=== PATIENT | female | born 1995 | race Caucasian/White ===

== ENCOUNTER 2024-09-07 15:47 | Emergency (ER) | payer OTHER, SELFPAY ==
--- OUTSIDE RECORDS SUMMARY | 2024-09-07 15:49 | XMS_ITS | Clinical Summary ---
[facility] Address [address] [place] [address] Care Team Providers Care Circuit Board Drafter Name Role Phone Nadia Sidhu APRN, CNP Primary Care Provider + Source Comments You are receiving this document as you are listed as the primary care provider,follow-up provider, or the patient has been referred to you for consultation.This is in compliance with the Medicare and[facility] Cent[facility] EHR Incentive Program,which states Providers who transition their patient to another setting of careor provider of care or refers their patient to another provider of care shouldprovide summary care record for each transition of care or referral. Thrinacia Allergies Active Allergy Reactions Criticality Noted Date Comments Cefprozil Hives High 08/09/2018 Iodine Hives High 08/09/2018 Medications MULTIPLE VITAMIN OR Take by mouth daily. Active Cholecalciferol (VITAMIN D-3 OR) Take by mouth daily. Active citalopram (CELEXA) 40 MG tabletIndication s:Anxiety and depression (HRC) Take 1 Tablet by mouth daily. 90 Tablet 3 11/21/2019 Active Active Problems Problem Noted Date Diagnosed Date Nexplanon in place 08/09/2018 Overview (08/09/2018): PLACED 04/2217 Immunizations Immunization Administration Dates Next Due 4vHPV (Gardasil) 08/13/2008,04/03/2008, 8 DTaP 08/03/2000, 7,02/10/1996,12/06,1995 HepA Ped/Adol (1-18 yrs) 06/15/2007,11/25/2006 HepB Ped/Adol (0-18 yrs) 02/10/1996,1995,0 1995 Hib, Unspecified Formulation 11/02/1996, 02/10/1996,1995,10/04 IPV (Polio) 08/03/2000, 7,1995,10/04 Influenza IIV4 (Quadrivalent ) 0.5mL (68424) 01/15/2019 Influenza, Unspecified Formulation 01/04/2018 MCV4 Menveo 2m.+ (two vial) 09/27/2011 MMR 08/03/2000,11/02/1996 Meningococcal MCV4, Unspecif ied Formulation 09/27/2011 Tdap 09/10/2016 Varicella 11/25/2006,08/03/2000 Family History Medical History Relation Name Comments Obesity Father Diabetes, Type II Mother Eczema Mother Relation Name Status Comments Father Alive Mother Alive Maternal Grandfather Alive Maternal Grandmother Alive Paternal Grandfather Alive Paternal Grandmother Alive Sister 1 Alive Sister 2 Alive Social History Tobacco Use Types Packs/Day Years Used Date Smoking Tobacco: Never Smokeless Tobacco: Never Alcohol Use Standard Drinks/Week Comments Yes 3 (1 standard drink = 0.6 oz pur e alcohol) Comments No Sex and Gender Information Value Date Recorded Sex Assigned at Not on file Legal Sex Female 9:17 AM CDT Gender Identity Not on file Sexual Orientation Not on file 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 on file Not on file Not on file Last Filed Vital Signs Vital Sign Reading Time Taken Comments Blood Pressure 109/75 11/21/2019 9:04 AM CDT Pulse 97 11/21/2019 9:04 AM CDT Temperature - - Respiratory Rate - - Oxygen Saturation - - Inhaled Oxygen Concentration - - Weight 69.9 kg (154 lb) 11/21/2019 9:04 AM CDT Height 170.2 cm (5' 7) 11/21/2019 9:04 AM CDT Body Mass Index 24.12 11/21/2019 9:04 AM CDT Plan of Treatment Health Maintenance Due Date Last Done Comments Hep C Screening (Preventive Services) 1995 HIV Screening (Preventive Services) 2011 Adult Preventive Visit 08/09/2020 08/09/2018 Cervical Cancer Screening 08/09/2021 08/09/2018, 05/2016 COVID-19 Vaccine ( season) 2023 04/22/2020, 04/01/2020 Influenza Vaccine (Season Ended) 2024 01/03/2020, 01/15/2019, 01/04/2018, Additional history exists DTaP/Tdap/Td Vaccine (8 - Tdap) 09/10/2026 09/10/2016, 11/25/2006, 08/03/2000, Additional history exists Zoster/Shingles Vaccine (1 of 2) 08/01/2045 HepB Vaccine Completed 02/10/1996, 09/10, 1995 Hib Vaccine Completed 11/02/1996, 04/1995, 1995, Additional history exists IPV (Polio) Vaccine Completed 08/03/2000, 11/02/1996, 1995, Additional history exists Varicella Vaccine Completed 11/25/2006, 08/03/2000 HepA Vaccine Completed 06/15/2007, 11/25/2006 HPV Vaccine Completed 08/13/2008, 03/12, 01/25/2008 MCV4 Vaccine Completed 09/27/2011, 09/09, 11/25/2006 Chlamydia Discontinued 08/09/2018 Meningococcal B Vaccine Aged Out No l onger eligible based on patient's age to complete this topic Pneumococcal Vaccine Aged Out No long er eligible based on patient's age to complete this topic Procedures Procedure Name Priority Date/Time Associated Diagnosis Comments CHLAMYDIA & GC (14 YEARS & OLDER) Routine 08/09/2018 2:45 PM CDT Screening for STD (sexually transmitted disease) CYTOLOGY (PAP) Routine 08/09/2018 2:45 PM CDT Screening for malignant neoplasm of cervix from Last 3 Months or Most Recently Relevant to Health Maintenance Results * PAP Test (08/09/2018 2:45 PM CDT) Case Report Pap Case: [id number] Authorizing Provider: Nadia Sidhu APRN, CNP Collected: 08/09/2018 02:45 PM Ordering Location: [facility] Received: 08/09/2018 02:58 PM First Screen: Aubrie Mera Specimen: Pap Test, Routine, Cervix/Endocervix 08/22/2018 2:00 PM [facility] Pap Specimen Adequacy Satisfactory for evaluation, endocervical/peña sformation zone component present. 08/22/2018 2:00 PM [facility] Pap Interpretation Negative for intraepithelial lesion or malignancy (NILM). 08/22/2018 2:00 PM [facility] at 1400 CDT Gross Description The specimen is received in SurePath fixative and properly labeled. 1 Pap-stained SurePath slide is prepared. 08/22/2018 2:00 PM [facility] Pap Disclaimer The Pap test is a screening test designed to aid in the detection of cervical cancer and its precursor lesions. It is not a diagnostic procedure and should not be used as the sole means of detecting cervical cancer. Both false-positive and false-negative reports may occur. 08/22/2018 2:00 PM [facility] Embedded Images 9 2:00 PM [facility] Other Specimen Type ENTIRE ENDOCERVIX / Unknown 08/09/2018 2:45 PM CDT 08/09/2018 2:58 PM CDT Comment:LMP: Patient's last menstrual period was 07/17/2018 (exact date). us Nadia Sidhu APRN, CNP LAB PATHOLOGY Final Re sult [address] [address], [facility] [phone] * Chlamydia & GC (14 Years and Older) (08/09/2018 2:45 PM CDT) Chlamydia Trachomatis STD Not Detected Not Detected 08/10/2018 2:34 PM CDT [facility] N. gonorrhoeae STD Not Detected Not Detected 08/10/2018 2:34 PM CDT [facility] Swab (Source Required) ENTIRE ENDOCERVIX / Unknown Non-blood Collection / Unknown 08/09/2018 2:45 PM CDT 08/09/2018 2:58 PM CDT Narrative [facility] - 08/10/2018 2:34 PM CDT Test performed by Molecular Detection us Nadia Sidhu RECEPTIONIST SECRETARY, CARE COORDINATION MANAGER LAB_1 Final Re sult [facility] [address] [address], [facility] [phone] from Last 3 Months or Most Recently Relevant to Health Maintenance Insurance [facility] [place] [id number] Care Teams Circuit Board Drafter Relationship Specialty Start Date End Date Nadia Sidhu APRN, CNP PCP - General Nurse Practitioner 08/07/18
--- OUTSIDE RECORDS SUMMARY | 2024-09-07 15:49 | XMS_ITS | Encounter Summary ---
Author Organization [facility] Address [address] [place] [address] Care Team Providers Care Concrete Batcher Name Role Phone Nadia Sidhu APRN, CNP Primary Care Provider + Encounter Details Date Type Department Care Team (Late st Contact Info) Description 09/10/2016 Scanned History External to [facility]red Record, [facility] Social History Tobacco Use Types Packs/Day Years Used Date Smoking Tobacco: Never Assessed Comments Unknown Sex and Gender Information Value Date Recorded Sex Assigned at Not on file Legal Sex Female 9:17 AM CDT Gender Identity Not on file Sexual Orientation Not on file documented as of this encounter Plan of Treatment Not on file documented as of this encounter Visit Diagnoses Not on filedocumented in this encounter Care Teams Concrete Batcher Relationship Specialty Start Date End Date Nadia Sidhu APRN, CNP PCP - General Nurse Practitioner 08/07/18 documented as of this encounter
--- OUTSIDE RECORDS SUMMARY | 2024-09-07 15:50 | XMS_ITS | Clinical Summary ---
Author Organization [employer] [facility] Address [facility] [place] [address] Care Team Providers Care Occupational Health Coordinator Name Role Phone TymagdalenosheelaTran Primary Care Provider Allergies Active Allergy Reactions Criticality Noted Date Comments Cefprozil Hives 11/21/2006 Iodine Hives Medications norethindrone acet-ethinyl est, 1.5-30 mg-mcg, (LOESTRIN .09/07; JUNEL .09/07) 1.5-30 mg-mcg tab tabletIndicatio ns:Irregular menses,Intermen strual bleeding Take 1 tablet by mouth once daily. 3 Package 06/23/2016 Active citalopram (CELEXA) 20 mg tabletIndicatio ns:Generalized anxiety disorder Take 1.5 tablets by mouth once daily. 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, UNSPECIFIED-L accommodative 7 Resolved Problems Problem Noted Date Diagnosed Date Resolved Date Esotropia, unspecified 11/25/200612/02 Encounters Date Type Department Care Team Description 07/20/2024 7:45 PM CDT Office Visit [facility] [address] [place] [address] Rich Díaz NP Laceration 07/20/2024 Travel from Last 3 Months Immunizations Immunization Administration Dates Next Due AMB Influenza, (Flumist) Mayra e Intranasal,LAIV4 (Flu Clinic Only) 01/26/2011 DTaP 08/03/2000, 7,02/10/1996,12/06,1995 HIB PRP-OMP (PedvaxHIB) 11/02/1996,02/09,1995,10/04 Hepatitis A (Peds) 06/15/2007,11/25/2006 Hepatitis B (Peds) 02/10/1996,1995, 996 Human Papilloma Virus Vaccine 08/13/2008, 008,01/25/2008 Inactivated Polio Vaccine 08/03/2000,,1995,10/04 Influenza, IIV3 (Age >=3 years) 01/16/2015,03/06,03/04/2010 Influenza, IIV4 01/17/2014 Influenza,LAIV4 Live Intrana ambra (Flumist) 01/10/2012 MENINGOCOCCAL VACCINE 2 VIAL 2MO-55YO (MENVEO) 09/27/2011 MMR 08/03/2000,11/02/1996 Meningococcal Vaccine (Menactra) 11/25/2006 Tdap 09/10/2016,11/25/2006 Varicella Vaccine 11/25/2006,08/03/2000 Family History Medical History Relation Name Comments Good Health Father Heart Disease Maternal Grandfather Hypertension Maternal Grandfather Diabetes Mother type 2 Blood Disease Paternal Grandfather leukem ia Hodgkin's lymphoma Sister Relation Name Status Comments Father Alive Maternal Grandfather Alive Maternal Grandmother Alive Mother Alive Paternal Grandfather Alive Paternal Grandmother Alive Sister Social History Tobacco Use Types Packs/Day Years Used Date Smoking Tobacco: Never Smokeless Tobacco: Never Tobacco Cessation:Counseling Given: Yes Comments:Non Smoking Household Alcohol Use Standard Drinks/Week Comments Yes 0 (1 standard drink = 0.6 oz pur e alcohol) social PHQ-2 Answer Date Recorded PHQ-2 Score 0 06/12/2018 Comments No Sex and Gender Information Value Date Recorded Sex Assigned at Not on file Legal Sex Female 7:11 AM DISTRICT COMMERCIAL SUPERINTENDENT Gender Identity Not on file Sexual Orientation Not on file Occupation Industry Job Start Date Job End Date student Not on file Not on file Not on file Obstetrics History Para Term AB IAB SAB Ectopic Multiple Livin g Live Births 0 0 0 0 0 0 0 0 0 0 Last Filed Vital Signs Vital Sign Reading Time Taken Comments Blood Pressure 135/81 07/20/2024 7:51 PM CDT Pulse 72 07/20/2024 7:51 PM CDT Temperature 37 C (98.6 F) 07/20/2024 7:51 PM CDT Respiratory Rate 18 07/20/2024 7:51 PM CDT Oxygen Saturation 100% 07/20/2024 7:51 PM CDT Inhaled Oxygen Concentration - - Weight 70.9 kg (156 lb 6.4 oz) 05/02/2017 5:13 P M DISTRICT COMMERCIAL SUPERINTENDENT Height 168.3 cm (5' 6.25) 05/02/2017 5:13 PM CS T Body Mass Index 25.05 05/02/2017 5:13 PM DISTRICT COMMERCIAL SUPERINTENDENT Plan of Treatment Health Maintenance Due Date Last Done Comments HIV for age 15-65 08/01/2010 Hepatitis C screening for age 18-79 08/01/2013 BMI (ht and wt on same day) for age 18+ 05/02/2018 05/02/2017, 09/10/2016, 06/14/2016 Depression screening for age 12+ 10/24/2018 10/24/2017, 05/02/2017, 09/10/2016, Additional history exists Pap test for age 21-65 09/11/2019 09/10/2016 COVID-19 vaccine series ( season) 2023 07/14/2021, 04/22/2020, 04/01/2020 Influenza Vaccine (Season Ended) 2024 01/16/2015, 01/17/2014, 03/06/2013, Additional history exists Tetanus booster 09/10/2026 09/10/2016, 11/25/2006 Hepatitis B series for 19+ Completed 02/09, 1995, 1995 Tdap Completed 09/10/2016, 11/25/2006 Pneumococcal series for age 6-49 Aged Out No longer eligible based on patient's age to complete this topic Procedures Procedure Name Priority Date/Time Associated Diagnosis Comments AR SIMPLE REPAIR SCALP/NECK/AX/GENIT /TRUNK 2.5CM/< Routine 07/20/2024 8:31 PM CDT Laceration of right hand without foreign body, initial encounter PRINCIPAL ASSOCIATE THIN PREP PAP SCREEN IMAGED Routine 09/10/2016 2:11 PM CDT Pap smear for cervical cancer screening from Last 3 Months or Most Recently Relevant to Health Maintenance Results * AR SIMPLE REPAIR SCALP/NECK/AX/GENIT/TRUNK 2.5CM/< (07/20/2024 8:31 PM CDT) Narrative Rich Díaz NP - 07/20/2024 8:31 PM CDT Rich Díaz NP 07/20/2024 8:37 PM Laceration Repair Date/Time: 07/20/2024 8:31 PM Performed by: Rich Díaz NP Authorized by: Rich Díaz NP Body area: upper extremity Location details: left hand Laceration length: 2 cm Foreign bodies: no foreign bodies Tendon involvement: none Nerve involvement: none Vascular damage: no Anesthesia: local infiltration Anesthesia: Local Anesthetic: lidocaine 2% without epinephrine Sedation: Patient sedated: no Preparation: Patient was prepped and draped in the usual sterile fashion. Irrigation solution: see nursing note. Amount of cleaning: standard Debridement: none Degree of undermining: none Skin closure: Ethilon (4-0) Number of sutures: 3 Technique: simple Approximation: close Approximation difficulty: simple Dressing: antibiotic ointment and pressure dressing (see nursing note) Patient tolerance: patient tolerated the procedure well with no immediate complications Rich Díaz NP PROCEDURE ORD Final Result * PRINCIPAL ASSOCIATE THIN PREP PAP SCREEN IMAGED (09/10/2016 2:11 PM CDT) Case Report Gynecologic Cytology Report Case: [id number] Authorizing Provider: Tran Britt DO Collected: 09/10/2016 1411 Ordering Location: [facility] Received: 09/10/2016 1411 Clinic First Screen: Ena Huston Specimen: PRINCIPAL ASSOCIATE ThinPrep Vial Screening, Cervical 09/21/2016 9:03 AM CDT [facility] ENTRAL LABORATORY INTERPRETATION/ RESULT NEGATIVE FOR INTRAEPITHELIAL LESION OR MALIGNANCY (NIL) (none) 09/21/2016 9:03 AM CDT [facility] ENTRAL LABORATORY at 0903 CDT SPECIMEN ADEQUACY Satisfactory for evaluation Endocervical component present 09/21/2016 9:03 AM CDT [facility] ENTRAL LABORATORY HPV REQUEST HPV if ASCUS 09/21/2016 9:03 AM CDT [facility] ENTRAL LABORATORY Date of LMP 08/17/2016 09/21/2016 9:03 AM CDT [facility] ENTRAL LABORATORY Last Pap Date n/a 09/21/2016 9:03 AM CDT [facility] Last Pap Result First Pap/Unknown 9:03 AM CDT [facility] Abnormal Pap or Elmer Bx in last 5 years No 09/21/2016 9:03 AM CDT [facility] ENTRAL LABORATORY Menstrual Status Regular Periods 09/21/2016 9:03 AM CDT [facility] Elmer Bx Done Today No 09/21/2016 9:03 AM CDT [facility] Additional Information None given 09/21/2016 9:03 AM CDT [facility] Automated Review Successful 09/21/2016 9:03 AM T [facility] Comment:Specimen processed s uccessfully by automated dealership general manager device, ThinPrep Imaging System, [employer] Note The pap test is a screening technique, not a diagnostic procedure. It is used primarily to screen for squamous cancers and precursor lesions. Published studies have shown that it is subject to both false negative and false positive results. The pap test should not be used as the sole means to diagnose or exclude pre-malignant and malignant lesions. Interpreted at [facility] ([facility], [facility], [facility], [facility], [facility], [facility], [facility]) 09/21/2016 9:03 AM CDT [facility] [place] [facility]-C ENTRAL LABORATORY Other (Cervical) 09/10/2016 2:11 PM CDT 09/10/2016 2:11 PM CDT us Tran Britt DO PATHOLOGY/CYTOLOGY Final Re sult [facility]-CENTRAL LABORATORY [address] [place] [address], [place] from Last 3 Months or Most Recently Relevant to Health Maintenance Insurance [facility] [place] [id number] [place] [id number] Care Teams Occupational Health Coordinator Relationship Specialty [place] [address] [place] [address] PCP - General Family Practice 08/12/14
[2024-09-07 16:00] VITALS: BP 135/88; PULSE 91; RESP 16; TEMP 36.7; O2SAT 99; BMI 24.7
--- NOTE | 2024-09-07 16:06 | ED.GENADULT ---
HPI - General Adult General Chief complaint: Vaginal Bleeding Stated complaint: Bleeding while 6 weeks Time Seen by Provider: 09/07/24 16:06 History of Present Illness HPI narrative: Pt reports pos test Mother's day weekend (approx 6 weeks ). Pt reports one gush of blood w /clot today around 0900- 1000. Small amounts of spotting since then. Reports some mild cramping rates 4/10 pain. Hx of ectopic . 29-year-old young woman presenting to the emergency department with concern of bleeding during . Would estimate about 6 weeks with an LMP of 07/23/24. Today it felt a gush of blood and producing a clot this morning. Been spotting since that time. Mild cramping. It called in to clinic and recommended to be seen in the ER with concern of ectopic or other. She does have a history of an ectopic . No miscarriages otherwise. No ultrasound has been done yet this . She is not experiencing a fever. Did have intercourse about 4 days ago. Related Data Allergies Allergy/AdvReac Type Severity Reaction Status Date / Time cefprozil (From Cefzil) Allergy Unknown Verified 09/07/24 16:04 povidone-iodine (From Allergy Unknown Verified 09/07/24 16:04 Betadine) Review of Systems Status of ROS: Reports: 6 or more systems reviewed and unremarkable except as noted in History and below Exam Narrative: Exam Narrative: Pleasant. NAD. Skin is warm and dry. Breathing easily. Lungs appear to be clear. Heart in regular rate and rhythm. Abdomen is soft minimal discomfort perhaps in the mid low pelvis. exam was not done. Well-perfused peripherally. Const: Vital Signs, click to edit/add: Vital Signs - 24 hr 09/07/24 16:00 Temperature 98.1 F Pulse Rate [Pulse Oximeter] 91 Respiratory Rate 16 Blood Pressure [Ri ght Upper Arm] 135/88 Pulse Oximetry 99 Oxygen Delivery Me thod Room Air Documenting provider has reviewed patient's vital signs: yes Course Vital Signs Vital signs: Initial Vital Signs Temperature 98.1 F 09/07/24 16:00 Temperature Source Temporal Artery Scan 09/07/24 16:00 Pulse Rate 91 09/07/24 16:00 Respiratory Rate 16 09/07/24 16:00 Blood Pressure 135/88 09/07/24 16:00 Blood Pressure Mean 103 09/07/24 16:00 Blood Pressure Position Sitting 09/07/24 16:00 Pulse Oximetry 99 09/07/24 16:00 Oxygen Delivery Method Room Air 09/07/24 16:00 Vital Signs Temperature 98.1 F 09/07/24 16:00 Pulse Rate 91 09/07/24 16:00 Respiratory Rate 16 09/07/24 16:00 Blood Pressure 135/88 09/07/24 16:00 Pulse Oximetry 99 09/07/24 16:00 Oxygen Delivery Method Room Air 09/07/24 16:00 Temperature 98.1 F 09/07/24 16:00 Pulse Rate 91 09/07/24 16:00 Respiratory Rate 16 09/07/24 16:00 Blood Pressure 135/88 09/07/24 16:00 Pulse Oximetry 99 09/07/24 16:00 Oxygen Delivery Method Room Air 09/07/24 16:00 Medical Decision Making MDM Narrative Medical decision making narrative: Will do a confirmatory ultrasound to verify location and/or state of . Collect standard labs verify blood type which she believes to be O positive. INDICATION: Vaginal bleeding early TECHNIQUE: Ultrasound OB pelvis transabdominal and transvaginal. Real-time taylor-scale imaging of the pelvis was performed. COMPARISON: None. FINDINGS: Intrauterine gestation: Gestational sac measures 0.9 cm. Tiny echogenic area within the gestational sac may represent the pole or yolk sac. heart activity (bpm): Not detected Estimated ultrasound age: 5 weeks 5 days. WAYNE by ultrasound: 05/05/2025. Perigestational hemorrhage: None. Ovaries and adnexa: Right ovary measures 2.8 x 2 x 2.1 cm. Probable corpus luteum in the right ovary measuring 1.9 cm. Left ovary measures 2.1 x 1.1 x 1.5 cm. Flow is present in the bilateral ovaries. Suspicious pelvic fluid collections: None. IMPRESSION: Intrauterine gestational sac with a possible early pole or yolk sac measuring 5 weeks 5 days by ultrasound. No cardiac activity detected at this time. Findings likely reflect early . Consider short interval follow-up ultrasound in 7-10 days for reassessment. Right ovarian corpus luteal cyst. Dictated by Brenda Musa MD @ 09/07/2024 5:36:22 PM Discussed these findings with Hazel and her partner. Suspect progressing as well considering the high hCG. Would not be needing RhoGAM Discussed case with OBGYN on-call. Anticipating follow-up clinic shortly See patient discharge plan for further discussion Stay well-hydrated. I am sorry I can not tell you exactly where this bleeding is coming from. We discussed a few options. Be seen for marked increase in bleeding such that your bleeding through to overnight pads an hour for 2 consecutive hours. I will call you if there is anything that requires discussion with regard to your labs. Please follow-up as scheduled in about 10 days. I would anticipate repeat ultrasound at that time Lab Data Lab results reviewed: Yes I reviewed the patient's lab results Labs: Lab Results 09/07/24 09/07/24 Range/Units 17:21 18:11 WBC 6.89 (4.50-11.00) K/uL RBC 4.37 (4.00-5.20) m/uL Hgb 13.4 (12.0-16.0) gm/dL Hct 40.0 (33.0-51.0) % MCV 92 (80-100) fL MCH 31 (26-34) pg MCHC 34 (32-36) gm/dL RDW Coeff of Megan 11.9 (11.5-15.5) % Plt Count 212 (140-440) K/uL Neut % (Auto) 61.6 (42.0-72.0) % Lymph % (Auto) 26.0 (20-44) % Dickson % (Auto) 9.1 (0.0-11.0) % Eos % (Auto) 3.2 (0.0-7.0) % Baso % (Auto) 0.1 (0.0-3.0) % Neut # (Auto) 4.24 (1.7-7.0) K/uL Lymph # (Auto) 1.79 (0.90-2.90) K/uL Dickson # (Auto) 0.60 (0.00-0.90) K/UL Eos # (Auto) 0.22 (0.00-0.50) K/uL Baso # (Auto) 0.01 (0.00-0.30) K/uL Abs Immat Gran (auto) 0.00 (0.00-0.30) K/uL Imm/Tot Granulo (auto) 0.0 % HCG, Quant 37372.00 mIU/mL Urine Color Yellow (Yellow) Urine Appearance Clear (Clear) Urine pH 7.0 (5.0-8.5) Ur Specific [place] 1.010 (1.000-1.030) Urine Protein Negative (Negative) Urine Glucose (UA) Negative (Negative) Urine Ketones 2+ A (Negative) Urine Blood 1+ A (Negative) Urine Nitrite Negative (Negative) Urine Bilirubin Negative (Negative) Urine Urobilinogen 0.2 (0.2-1.0) Ur Leukocyte Esterase Negative (Negative) Urine RBC 0-2 (0-2) Urine WBC 0-2 (0-5) Ur Squamous Epith Cells None (None-Few) Urine Bacteria None (None) Blood Type O Positive Discharge Plan Discharge Clinical Impression: Bleeding in early Patient Disposition: Home w/ Parent or Adult Condition: Stable Additional Instructions: Stay well-hydrated. I am sorry I can not tell you exactly where this bleeding is coming from. We discussed a few options. Be seen for marked increase in bleeding such that your bleeding through to overnight pads an hour for 2 consecutive hours. I will call you if there is anything that requires discussion with regard to your labs. Please follow-up as scheduled in about 10 days. I would anticipate repeat ultrasound at that time Follow Up/Referrals: Provider,Not a Local [Primary Care Provider, Family Practice] Stand Alone Forms: [employer] Info Instructions
--- NOTE | 2024-09-07 16:12 | CRLHL7_ITS ---
For Patients: As a result of the Cures Act, medical imaging exams and procedure reports are released immediately into your electronic medical record. You may view this report before your referring provider. If you have questions, please contact your health care provider. INDICATION: Vaginal bleeding early TECHNIQUE: Ultrasound OB pelvis transabdominal and transvaginal. Real-time taylor-scale imaging of the pelvis was performed. COMPARISON: None. FINDINGS: Intrauterine gestation: Gestational sac measures 0.9 cm. Tiny echogenic area within the gestational sac may represent the pole or yolk sac. heart activity (bpm): Not detected Estimated ultrasound age: 5 weeks 5 days. WAYNE by ultrasound: 05/05/2025. Perigestational hemorrhage: None. Ovaries and adnexa: Right ovary measures 2.8 x 2 x 2.1 cm. Probable corpus luteum in the right ovary measuring 1.9 cm. Left ovary measures 2.1 x 1.1 x 1.5 cm. Flow is present in the bilateral ovaries. Suspicious pelvic fluid collections: None. IMPRESSION: Intrauterine gestational sac with a possible early pole or yolk sac measuring 5 weeks 5 days by ultrasound. No cardiac activity detected at this time. Findings likely reflect early . Consider short interval follow-up ultrasound in 7-10 days for reassessment. Right ovarian corpus luteal cyst. Dictated by Brenda Musa MD @ 09/07/2024 5:36:22 PM (Electronically Signed)
[2024-09-07 17:42] LABS: Basophils Absolute Auto 0.01 K/uL (0.00-0.30); Basophils Percent Auto 0.1 % (0.0-3.0); Eosinophils Absolute Auto 0.22 K/uL (0.00-0.50); Eosinophils Percent Auto 3.2 % (0.0-7.0); Hemoglobin* 13.4 gm/dL (12.0-16.0); Lymphocytes Absolute Auto 1.79 K/uL (0.90-2.90); Mean Corpuscular HGB Conc 34 gm/dL (32-36); Mean Corpuscular Hemoglobin 31 pg (26-34); Mean Corpuscular Volume 92 fL (80-100); Monocytes Percent Auto 9.1 % (0.0-11.0); Neutrophils Absolute Auto 4.24 K/uL (1.7-7.0); Neutrophils Percent Auto 61.6 % (42.0-72.0); Platelet Count* 212 K/uL (140-440); RDW Coefficient of Variation % 11.9 % (11.5-15.5); Red Blood Count 4.37 m/uL (4.00-5.20); White Blood Count* 6.89 K/uL (4.50-11.00)
[2024-09-07 18:27] LABS: Slide Review Reflex No
[2024-09-07 18:41] LABS: Appearance Urine Clear (Clear); Bilirubin Urine Negative (Negative); Blood Urine 1+ (Negative); Color Urine Yellow (Yellow); Glucose Urine Negative (Negative); Ketones Urine 2+ (Negative); Leukocyte Esterase Urine Negative (Negative); Nitrite Urine Negative (Negative); Protein Urine Negative (Negative); Urobilinogen Urine 0.2 (0.2-1.0)
[2024-09-07 18:50] LABS: RBC Urine 0-2 (0-2); WBC Urine 0-2 (0-5)
== END 2024-09-07 18:30 | disposition home or self-care (01) ==
PROVIDERS: Emergency Provider Family Medicine
DX: O20.9 Hemorrhage in early pregnancy, unspecified (principal); Z3A.01 Less than 8 weeks gestation of pregnancy
CPT/HCPCS: 36415; 76817; 81001; 84702; 85025; 86900; 86901; 99284

== ENCOUNTER 2024-09-12 15:36 | Outpatient (CLI) | payer OTHER, SELFPAY | END 2024-09-12 15:37 | disposition home or self-care (01) | LOC: NFLDREF 09-15 02:51 | PROVIDERS: Visit Provider Midwife | DX: O20.9 Hemorrhage in early pregnancy, unspecified (principal) | CPT/HCPCS: 84702 ==

== ENCOUNTER 2024-09-19 15:40 | Outpatient (CLI) | payer OTHER, SELFPAY | END 2024-09-19 15:41 | disposition home or self-care (01) | LOC: NFLDREF 09-20 23:33 | PROVIDERS: Visit Provider Advanced Practice Midwife | DX: O20.9 Hemorrhage in early pregnancy, unspecified (principal) | CPT/HCPCS: 84702 ==